=== PATIENT | male | born 2000 | race African-American/Black ===

== ENCOUNTER 2023-05-26 18:24 | Emergency (ER) | payer OTHER ==
[~2023-05-26] VITALS: Ht 170.2 cm; Wt 77.7 kg
[2023-05-26 18:26] VITALS: BP 139/77; TEMP 98.8; O2SAT 100
[2023-05-26] MEDS: IBUPROFEN 600MG TAB PO ONE (20:12)
[2023-05-26] MEDS ORDERED: IBUP-1022 PO (20:16)
== END 2023-05-26 20:26 | disposition home or self-care (01) ==
LOC: M ED 18:24
DX: S62.647A Nondisplaced fracture of proximal phalanx of left little finger, initial encounter for closed fracture (principal); W23.1XXA Caught, crushed, jammed, or pinched between stationary objects, initial encounter; Z79.1 Long term (current) use of non-steroidal anti-inflammatories (NSAID); Y92.009 Unspecified place in unspecified non-institutional (private) residence as the place of occurrence of the external cause; Y93.64 Activity, baseball; Y99.9 Unspecified external cause status